=== PATIENT | male | born 1945 | race Caucasian/White ===

== ENCOUNTER → 2020-11-26 | Outpatient (CLI) | payer MEDICARE, BC | LOC: COL.RAD 08:51 | DX: C61 Malignant neoplasm of prostate (principal); J98.11 Atelectasis; J98.4 Other disorders of lung; Z96.652 Presence of left artificial knee joint; Z90.49 Acquired absence of other specified parts of digestive tract | CPT/HCPCS: A9503; Q9967 ==

== ENCOUNTER 2021-03-19 15:05 | Emergency (ER) | payer MEDICARE, BC ==
[~2021-03-19] VITALS: Ht 185.4 cm; Wt 113.2 kg
[2021-03-19 16:02] VITALS: TEMP 98.2
[2021-03-19 16:56] LABS: COLLECTION METHOD CLEAN CATCH
[2021-03-19 17:11] LABS: PH 5 (5-8); SQUAMOUS EPITHELIAL None Seen /hpf; URINE APPEARANCE Clear; URINE BACTERIA Rare /hpf; URINE BILIRUBIN Negative (NEGATIVE); URINE BLOOD 1+ (NEGATIVE); URINE COLOR Yellow; URINE GLUCOSE Negative (NEGATIVE); URINE KETONE Negative (NEGATIVE); URINE LEUKOCYTE ESTERASE Negative (NEGATIVE); URINE NITRATE Negative (NEGATIVE); URINE PROTEIN(semi-quant) Negative (NEGATIVE); URINE UROBILINOGEN Negative (NEGATIVE)
[2021-03-19 17:49] LABS: BASO % 0.4 % (0.0-2.0); EOS # 0.2 (0.0-0.7); EOS % 1.6 % (0-4.0); GRAN # 6.5 (1.4-6.5); GRAN % 64.2 % (42.2-75.2); HEMATOCRIT 48.8 % (42.0-52.0); HEMOGLOBIN 16.6 g/dl (13.5-18.0); LYMPH # 2.5 (1.2-3.4); LYMPH % 24.4 % (20.0-51.0); MEAN CELL VOLUME 98 fl (80.0-100.0); MEAN CORPUSCULAR HEMOGLOBIN 33 pg (27.0-31.0); MEAN CORPUSCULAR HGB CONC 34 g/dl (33.0-37.0); MONO # 0.9 (0.1-0.6); MONO % 9.2 % (1.7-9.3); PLATELET COUNT 146 K/mm3 (130-400); RED BLOOD COUNT 4.97 M/mm3 (4.20-5.60); REDCELL DISTRIBUTION WIDTH-CV 12.9 % (11.5-14.5)
[2021-03-19 18:13] LABS: ALBUMIN 3.9 gm/dL (3.5-5.0); BILIRUBIN,TOTAL 1.7 mg/dL (0.0-1.0); CALCIUM 8.7 mg/dL (8.4-10.2); CREATININE, serum 1.14 (0.66-1.25); POTASSIUM 4.5 mmol/L (3.4-5.0); TOTAL PROTEIN 7.2 gm/dL (6.4-8.2)
[2021-03-19] MEDS ORDERED: AMOXICILLIN 8751 TAB PO (20:17)
[2021-03-19] MEDS ORDERED: PEPCID 20MG TAB20 MG PO (20:17)
[2021-03-19] MEDS ORDERED: ZOFRAN ODT4 MG PO (20:17)
[2021-03-19 20:43] VITALS: BP 130/100; PULSE 83
== END 2021-03-19 20:47 | disposition home or self-care (01) ==
LOC: COL.ER 15:05
PROVIDERS: Emergency Medicine
DX: R10.31 Right lower quadrant pain (principal); Z88.2 Allergy status to sulfonamides
CPT/HCPCS: J2270; J2405; Q9967

== ENCOUNTER 2021-06-06 06:41 | Day surgery (SDC) | payer MEDICARE, BC ==
[~2021-06-06] VITALS: Ht 185.4 cm; Wt 110.5 kg
[~2021-06-06 06:41] MED LIST: AMOXICILLIN 8751 TAB PO; PEPCID 20MG TAB20 MG PO; ZOFRAN ODT4 MG PO
[2021-06-06 07:12] VITALS: BP 138/84; PULSE 56; TEMP 97.6
[2021-06-06] MEDS ORDERED: COZAAR100 MG PO (07:16)
[2021-06-06] MEDS ORDERED: ZYLOPRIM 300MG300 MG PO (07:16)
[2021-06-06] MEDS ORDERED: SINGULAIR 110 MG/TAB PO (07:17)
[2021-06-06] MEDS ORDERED: PULMICORT0.5 MG/2 M IH (07:17)
[2021-06-06] MEDS ORDERED: UROXATRAL10 M1 PO (07:17)
[2021-06-06] MEDS ORDERED: 00186-0370-20 IH (07:18)
[2021-06-06] MEDS ORDERED: VENTOLIN0.09 MG IH (07:18)
[2021-06-06 09:15] VITALS: BP 140/76; PULSE 54; TEMP 97.1
--- NOTE | 2021-06-06 09:15 | NUR ---
Patient returned to room via cart. Drowsy, wakes easily. Postop vital signs started. Dr. arellano to speak with patient [id number]. Patient experiencing abnormal heart rhythm. Vital signs remain stable and patient is not experiencing any symptoms from abnorml rhythm. Will continue to monitor closely. Recommened to patient and that they schedule an appointment to investigate heart rhythm.
--- NOTE | 2021-06-06 09:22 | NUR ---
Dr. arellano to speak with patient.
[2021-06-06 09:30] VITALS: BP 136/81; PULSE 49
--- NOTE | 2021-06-06 09:30 | NUR ---
Patient sitting up in chair, alert and oriented. Vital signs remain stable, heart rhythm still irregular, patient not experiencing symptoms. Patient agrees to try juice and muffin. Will continue to monitor.
[2021-06-06 09:45] VITALS: BP 137/91; PULSE 48
--- NOTE | 2021-06-06 09:45 | NUR ---
Patient sitting up in chair, alert and oriented. Vital signs stable, heart rhythm irregular, patient is not experiencing and symptoms. Tolerating food and drink well. Request to be discharged home.
--- NOTE | 2021-06-06 10:00 | NUR ---
D/C IV with no complication.
--- NOTE | 2021-06-06 10:13 | NUR ---
Patient transfered via wheelchair to [facility] transportation by staff, accompanied by .
== END 2021-06-06 10:13 | disposition home or self-care (01) ==
LOC: SDCO 06:41
DX: D12.2 Benign neoplasm of ascending colon (principal); D12.3 Benign neoplasm of transverse colon; D12.5 Benign neoplasm of sigmoid colon; D12.8 Benign neoplasm of rectum; K64.1 Second degree hemorrhoids; K57.30 Diverticulosis of large intestine without perforation or abscess without bleeding; R19.7 Diarrhea, unspecified; J45.909 Unspecified asthma, uncomplicated; N18.9 Chronic kidney disease, unspecified; I10 Essential (primary) hypertension; E66.9 Obesity, unspecified; M19.90 Unspecified osteoarthritis, unspecified site; Z20.822 Contact with and (suspected) exposure to COVID-19; Z68.33 Body mass index [BMI] 33.0-33.9, adult; Z79.899 Other long term (current) drug therapy; Z85.46 Personal history of malignant neoplasm of prostate; Z80.42 Family history of malignant neoplasm of prostate
CPT/HCPCS: J2704; J7120